=== PATIENT | male | born 1950 | race Caucasian/White ===

== ENCOUNTER 2018-10-27 16:18 | Emergency (ER) | payer OTHER, MEDICAID ==
[~2018-10-27] VITALS: Ht 170.2 cm; Wt 85.4 kg
[2018-10-27 16:25] VITALS: Ht 170.2 cm; Wt 85.4 kg
[2018-10-27 17:04] LABS: BASOPHIL % 0.1 % (0-2); PLATELET COUNT 224 x10^3mcL (130-400)
[2018-10-27 17:05] LABS: RED CELL DISTRIBUTION WIDTH 15.3 % (11.5-14.5)
[2018-10-27 17:16] LABS: CALCIUM 9.1 mg/dL (8.5-10.1); CARBON DIOXIDE 28.2 mmol/L (21-32); CREATININE SERUM 1.7 mg/dL (0.7-1.3); POTASSIUM SERUM 3.9 mmol/L (3.5-5.1)
[2018-10-27 17:21] LABS: BILIRUBIN TOTAL 0.42 mg/dL (0.20-1.00); TOTAL PROTEIN, SERUM 7.7 g/dL (6.4-8.2)
[2018-10-27 17:28] LABS: ALBUMIN 3.3 g/dL (3.4-5.0)
[2018-10-27 18:48] VITALS: BP 119/80
== END 2018-10-27 18:48 | disposition home or self-care (01) ==
LOC: ED 16:18
PROVIDERS: Emergency Medicine
DX: S82.831A Other fracture of upper and lower end of right fibula, initial encounter for closed fracture (principal); I10 Essential (primary) hypertension; E11.9 Type 2 diabetes mellitus without complications; W18.30XA Fall on same level, unspecified, initial encounter; Y93.89 Activity, other specified; Y92.89 Other specified places as the place of occurrence of the external cause; Y99.8 Other external cause status
CPT/HCPCS: Q0092

== ENCOUNTER 2019-09-15 20:06 | Inpatient (IN) | payer OTHER, MEDICAID ==
[~2019-09-15] VITALS: Ht 170.2 cm; Wt 73.9 kg
[2019-09-15 20:10] VITALS: Ht 170.2 cm; Wt 73.9 kg
[2019-09-15 20:37] LABS: RED CELL DISTRIBUTION WIDTH 14.5 % (11.5-14.5)
[2019-09-15 20:43] LABS: PLATELET COUNT 115 x10^3mcL (130-400)
[2019-09-15 20:44] LABS: CALCIUM 8.7 mg/dL (8.5-10.1); CARBON DIOXIDE 30.4 mmol/L (21-32); CREATININE SERUM 1.5 mg/dL (0.7-1.3); POTASSIUM SERUM 3.5 mmol/L (3.5-5.1)
--- NOTE | 2019-09-15 20:45 | NUR ---
PT MOVED TO RM 14 FOR NEUTROPENIC PRECAUTIONS.
[2019-09-15 20:49] LABS: BILIRUBIN TOTAL 0.33 mg/dL (0.20-1.00); TOTAL PROTEIN, SERUM 7.6 g/dL (6.4-8.2)
[2019-09-15 20:56] LABS: BAND NEUTROPHIL 0 % (0-10); BASOPHIL 0 % (0-2); MONOCYTE 8 % (0-7); SEGMENTED NEUTROPHILS 18 % (37-75)
[2019-09-15 20:58] LABS: rbc morphology (normal/abnorm) NORMAL (NORMAL)
[2019-09-15 21:00] LABS: ALBUMIN 2.9 g/dL (3.4-5.0)
--- NOTE | 2019-09-15 21:02 | NUR ---
PT PRESENTED TO ED FOR NAUSEA, VOMITING, AND BURNING EPIGASTRIC PAIN THAT RADIATES TO MIDSTERNAL X 6 DAYS S/P GETTING CHEMO. PT GRANDDAUGHTER RENAY STATES HE RECEIVED HIS FIRST IV CHEMO ON WEDNESDAY, WEDNESDAY, WEDNESDAY, AND WEDNESDAY. PT REPORTS "NOT FEELING WELL" AFTER CHEMO AND "THEY GAVE ME PILLS FOR THE NAUSEA BUT I RAN OUT, SO I HAVENT BEEN TAKING THEM". PT AWAKE AND ALERT, SPEAKING FULL CLEAR SENTENCES. PT BREATHING EVEN AND UNLABORED. PT GRANDAUGHER AT BEDSIDE. WILL CONTINUE TO MONITOR, AWAITING MSE. FULL CM AND [address]
--- NOTE | 2019-09-15 21:06 | NUR ---
RENAY HERNÁNDEZ GRANDDAUGHTER [phone] TO CONTACT ABOUT PLAN 0F CARE. OKAY PER PT TO CONTACT RENAY.
[2019-09-15 22:09] LABS: microscopic required? YES; urine erythrocyte NEGATIVE (NEGATIVE)
[2019-09-15] MEDS ORDERED: LIPITOR10 MG (22:21)
[2019-09-15] MEDS ORDERED: LYSODREN500 MG PO (22:21)
[2019-09-15] MEDS ORDERED: ZOFRAN8 MG PO (22:21)
[2019-09-15] MEDS ORDERED: IBU400 M2 PO (22:22)
--- NOTE | 2019-09-15 22:23 | NUR ---
XRAY AT BEDSIDE
[2019-09-15 22:27] LABS: CHOLESTEROL/HDL RATIO 3.3; MAGNESIUM 1.6 mg/dL (1.8-2.4); PHOSPHOROUS 2.8 mg/dL (2.5-4.9)
--- NOTE | 2019-09-15 22:45 | NUR ---
REPORT CALLED TO ARMANI SEPULVEDA.
--- NOTE | 2019-09-15 22:48 | NUR ---
PT TRANSFERED TO [facility] AT THIS TIME VIA GURNEY BY JEANNE EMT. PT A&0X4, SPEAKING FULL CLEAR SENTENCES. PT BREATHING EVEN AND UNLABORED. PT VERBALIZED UNDERSTANDING OF PLAN OF CARE. IV FLUIDS RUNNING AT ORDERED RATE WITH NO COMPLICATIONS. ARMANI RN TO ASSUME CARE OF PT AT THIS TIME.
[2019-09-15 23:18] VITALS: BP 160/88
[2019-09-15 23:30] LABS: IRON 171 ug/dL (65-170); TOTAL IRON BINDING CAPACITY 211 ug/dL (250-450)
--- NOTE | 2019-09-15 23:36 | NUR ---
RECEIVED PT FROM ER, PT ADMIT FOR LEUKOPENIA, UNSEPCIFIED CA, PT IS A/O X4, VERBAL RESPONSIVE. LUNG SOUND CLEAR BILATERAL, NO COUGH, NO SOB. PT DENY ANY CHEST PAIN OR DISCOMFORT, BOWEL SOUND PRESENT ALL 4 QUADRANTS, NO DISTENTION, NO TENDER. BUT PT C/O VOMITTING FOR 7 DAYS. SINCE LAST WEEKEND HIS LAST DOSE TO CHEMO TREATMENT IN [facility]. DENY ANY N/V AT THIS MOMENT, PEDAL PULSE PRESENT BOTH FEET, TRACE EDEMA BLE. THERE IS MEDI PORT AT RIGHT UPPER CHEST. PT IS ON NEUTROPENIA ISOLATION AT THIS MOMENT, ALL ADLS ASSIST, ALL NEED MET, CALL LIGHT IN REACH, WILL CONTINUE TO MONITOR.
--- NOTE | 2019-09-15 23:40 | NUR ---
PT RECIEVED FROM LEWIS SEPULVEDA. PT RESTING IN BED AT THIS TIME. REQUESTING A BENEDRYL FOR ITCHING, INFORMED . SHE STATED SHE WOULD ORDER. BREATHING E/U ON RA AT THIS TIME. NO S/S OF ACUTE STRESS NOTED. ALL NEEDS AND CONCERNS ADDRESSED AT THIS TIME. WILL CONTINUE TO MONITOR.
--- NOTE | 2019-09-15 23:42 | NUR ---
PT REFUSING NG TUBE INSERTION AT THIS TIME. MADE AWARE.
[2019-09-16 03:18] LABS: RED BLOOD CELLS 4.85 M/mm3 (4.52-5.90)
[2019-09-16 05:13] VITALS: BP 168/90
--- NOTE | 2019-09-16 06:31 | NUR ---
PT RESTING IN BED AT THIS TIME. COMPLAINING OF N/V AT THSI TIME. MEDICATED WITH PRN ZOFRAN. BREATHING E/U ON RA. NO S/S OF ACUTE DISTRESS NOTED AT THIS TIME. ALL NEEDS AND CONCERNS ADDRESSED THIS SHIFT. BED AT LOWEST POSITION. CALL LIGHT WITHIN REACH. WILL ENDORSE TO DAY NURSE.
[2019-09-16 07:32] LABS: CALCIUM 8.3 mg/dL (8.5-10.1); CARBON DIOXIDE 25.4 mmol/L (21-32); CHLORIDE SERUM 95 mmol/L (98-107); CREATININE SERUM 1.2 mg/dL (0.7-1.3); GFR1 > 60 mL/min; GLUCOSE SERUM 257 mg/dL (74-106); MAGNESIUM 1.9 mg/dL (1.8-2.4); PHOSPHOROUS 2.4 mg/dL (2.5-4.9); POTASSIUM SERUM 3.5 mmol/L (3.5-5.1); SODIUM SERUM 131 mmol/L (136-145)
--- NOTE | 2019-09-16 07:35 | NUR ---
RECEIVED PT FROM [employer]. ASSESSED AND DOCUMENTED. DENIES ANY PAIN THIS TIME. NO DISTRESS NOTED. STABLE. SAFTEY PRECAUTIONS ARE IN PLACE. WILL MONITOR.
[2019-09-16 07:43] LABS: RED CELL DISTRIBUTION WIDTH 14.2 % (11.5-14.5)
[2019-09-16 07:51] LABS: PLATELET COUNT 81 x10^3mcL (130-400)
[2019-09-16 07:57] LABS: AMPHETAMINE QUAL UR NEGATIVE (See below)
--- NOTE | 2019-09-16 08:00 | NUR ---
AWARE ABOUT WBC=1.8, PHOS 2.4 AND ALL WBC AND BMP RESULT. PT IS STABLE.
[2019-09-16 08:13] VITALS: BP 165/92
--- NOTE | 2019-09-16 08:40 | NUR ---
PT'S GRAND DAUGHTER CAME TO VISIT PT. PT CALLED AND SAID HE WANT TO GO HOME BECAUSE HIS IS SICK. INFORMED , SHE AND CAME IN THE ROOM AND SPOKE WITH PT. AWARE ABOUT PT BP 165/92 AND HR 114. PT IS ANXIOUS TO GO HOME AND HE SAID HE HAS BP MEDICINE AT HOME AND HE WILL TAKE IT AT HOME, HE HAS TO GO HOME NOW. PT SIGNED AMA FORM AND PB FORM. PT IS STABLE. DENIES ANY PAIN. PROVIDED PRESCRIPTION FOR ZOFRAN TO HIS PHARMACY.
[2019-09-16 08:43] LABS: SEGMENTED NEUTROPHILS 22 % (37-75)
[2019-09-16 08:44] LABS: MONOCYTE 4 % (0-7); rbc morphology (normal/abnorm) ABNORMAL (NORMAL)
--- NOTE | 2019-09-16 08:55 | NUR ---
RIVER[employer]AT MASTER OFFERED WHEELCHAIR BUT PT REFUSED AND SAID HE WANT TO WALK. RIVERBOAT MASTER WALK WITH PT ACCOMPANIED WITH HIS GRAND DAUGHTER TO LOBBY. PT IS STABLE, DENIES ANY PAIN. NO NAUSEA/VOMITING THIS TIME. LEFT AMA.
[2019-09-16 11:31] LABS: BAND NEUTROPHIL 0 % (0-10)
== END 2019-09-16 08:58 | disposition left against medical advice (07) | DRG 682 ==
LOC: ED 20:06 → MU 22:01
PROVIDERS: Emergency Medicine; ADMIT Family Medicine
DX: N17.0 Acute kidney failure with tubular necrosis (principal); R65.11 Systemic inflammatory response syndrome (SIRS) of non-infectious origin with acute organ dysfunction; C48.1 Malignant neoplasm of specified parts of peritoneum; D68.69 Other thrombophilia; E44.0 Moderate protein-calorie malnutrition; E87.1 Hypo-osmolality and hyponatremia; E86.0 Dehydration; R11.2 Nausea with vomiting, unspecified; T45.1X5A Adverse effect of antineoplastic and immunosuppressive drugs, initial encounter; I12.9 Hypertensive chronic kidney disease with stage 1 through stage 4 chronic kidney disease, or unspecified chronic kidney disease; N18.4 Chronic kidney disease, stage 4 (severe); D69.59 Other secondary thrombocytopenia; E83.42 Hypomagnesemia; E83.51 Hypocalcemia; E11.9 Type 2 diabetes mellitus without complications; Z68.25 Body mass index [BMI] 25.0-25.9, adult; Y92.009 Unspecified place in unspecified non-institutional (private) residence as the place of occurrence of the external cause
CPT/HCPCS: 82962; 83880; 87804; G0378; J2405; J2543; J2765; J3475; J7030; Q0092; Q0163

== ENCOUNTER 2019-10-16 20:19 | Inpatient (IN) | payer OTHER, MEDICAID ==
[~2019-10-16] VITALS: Ht 170.2 cm; Wt 69.4 kg
[~2019-10-16 20:19] MED LIST: IBU400 M2 PO; LIPITOR10 MG; LYSODREN500 MG PO; ZOFRAN8 MG PO
[2019-10-16 20:47] VITALS: Ht 170.2 cm; Wt 69.4 kg
[2019-10-16 21:27] LABS: PLATELET COUNT 59 x10^3mcL (130-400); RED CELL DISTRIBUTION WIDTH 14.9 % (11.5-14.5)
[2019-10-16 21:49] LABS: CALCIUM 8.9 mg/dL (8.5-10.1); CARBON DIOXIDE 38.8 mmol/L (21-32); CREATININE SERUM 2.7 mg/dL (0.7-1.3); POTASSIUM SERUM 3.2 mmol/L (3.5-5.1)
[2019-10-16 21:51] LABS: BAND NEUTROPHIL 0 % (0-10); BASOPHIL 0 % (0-2); SEGMENTED NEUTROPHILS 30 % (37-75)
[2019-10-16 21:53] LABS: BILIRUBIN TOTAL 0.18 mg/dL (0.20-1.00); PLATELET MORPHOLOGY PLATELETS DECREASED; rbc morphology (normal/abnorm) ABNORMAL (NORMAL)
[2019-10-16 21:55] LABS: ALBUMIN 2.7 g/dL (3.4-5.0)
[2019-10-16] MEDS ORDERED: HORIZANT300 MG PO (23:10)
[2019-10-16] MEDS ORDERED: COLACE100 MG PO (23:11)
[2019-10-16] MEDS ORDERED: FERROCITE324 MG PO (23:11)
[2019-10-17 00:35] VITALS: BP 135/68
[2019-10-17 02:43] LABS: T3 TOTAL 1.1 ng/mL
[2019-10-17 02:44] LABS: CHOLESTEROL/HDL RATIO 3.8
[2019-10-17 02:57] LABS: FREE T4 1.12 ng/dL (0.76-1.46); FREE THYROXINE INDEX 2.7 ug/dL (1.4-4.5); T4(THYROXINE) 8.9 ug/dL (4.7-13.3)
[2019-10-17 05:48] VITALS: BP 166/73
[2019-10-17 07:03] LABS: CARBON DIOXIDE 33.3 mmol/L (21-32); CREATININE SERUM 2.3 mg/dL (0.7-1.3)
[2019-10-17 07:09] LABS: POTASSIUM SERUM 2.9 mmol/L (3.5-5.1)
[2019-10-17 07:54] LABS: PLATELET COUNT 54 x10^3mcL (130-400)
[2019-10-17 09:30] LABS: BAND NEUTROPHIL 0 % (0-10); SEGMENTED NEUTROPHILS 71 % (37-75)
[2019-10-17 09:31] LABS: MONOCYTE 3 % (0-7); PLATELET MORPHOLOGY PLATELETS DECREASED; rbc morphology (normal/abnorm) NORMAL (NORMAL)
[2019-10-17 09:33] VITALS: BP 172/99
[2019-10-17 12:32] VITALS: BP 179/92
[2019-10-17 17:10] VITALS: BP 122/75
[2019-10-17 20:41] VITALS: BP 152/82
[2019-10-17 20:53] LABS: microscopic required? YES; urine erythrocyte NEGATIVE (NEGATIVE)
[2019-10-17 21:26] LABS: AMPHETAMINE QUAL UR NONE DETECTED (See below)
[2019-10-18 06:00] VITALS: BP 148/82
[2019-10-18 06:59] LABS: CALCIUM 7.3 mg/dL (8.5-10.1); CREATININE SERUM 1.8 mg/dL (0.7-1.3); PHOSPHOROUS 2.3 mg/dL (2.5-4.9); POTASSIUM SERUM 3.3 mmol/L (3.5-5.1)
[2019-10-18 07:02] LABS: MAGNESIUM 0.9 mg/dL (1.8-2.4)
[2019-10-18 07:35] LABS: RED CELL DISTRIBUTION WIDTH 15.7 % (11.5-14.5)
[2019-10-18 07:58] VITALS: BP 115/41
[2019-10-18 09:02] LABS: SEGMENTED NEUTROPHILS 20 % (37-75)
[2019-10-18 09:03] LABS: ATYPICAL LYMPH 0 %; BAND NEUTROPHIL 0 % (0-10); BASOPHIL 0 % (0-2); MONOCYTE 3 % (0-7); rbc morphology (normal/abnorm) ABNORMAL (NORMAL)
[2019-10-18 09:04] LABS: PLATELET MORPHOLOGY PLATELETS DECREASED
[2019-10-18 09:07] LABS: PLATELET COUNT 25 x10^3mcL (130-400)
[2019-10-18 12:30] VITALS: BP 158/84
[2019-10-18 16:26] VITALS: BP 162/85
[2019-10-18 20:55] VITALS: BP 157/71
[2019-10-19] VITALS (9 sets, daily range): BP systolic 98–171; BP diastolic 57–89
[2019-10-19 07:23] LABS: CALCIUM 7.5 mg/dL (8.5-10.1); CARBON DIOXIDE 28.4 mmol/L (21-32); CREATININE SERUM 1.6 mg/dL (0.7-1.3); MAGNESIUM 1.6 mg/dL (1.8-2.4); POTASSIUM SERUM 3.8 mmol/L (3.5-5.1)
[2019-10-19 07:40] LABS: PLATELET COUNT 13 x10^3mcL (130-400); RED CELL DISTRIBUTION WIDTH 15.3 % (11.5-14.5)
[2019-10-19 09:40] LABS: BAND NEUTROPHIL 4 % (0-10); BASOPHIL 0 % (0-2); MONOCYTE 8 % (0-7); SEGMENTED NEUTROPHILS 40 % (37-75); rbc morphology (normal/abnorm) ABNORMAL (NORMAL)
[2019-10-19 12:27] LABS: RED CELL DISTRIBUTION WIDTH 15.7 % (11.5-14.5)
[2019-10-19 13:25] LABS: BAND NEUTROPHIL 3 % (0-10); BASOPHIL 0 % (0-2); MONOCYTE 5 % (0-7); PLATELET MORPHOLOGY PLATELETS DECREASED; SEGMENTED NEUTROPHILS 53 % (37-75); ovalocyte/elliptocyte 1+; rbc morphology (normal/abnorm) ABNORMAL (NORMAL); target cell (codocyte) 1+; tear drop cell (dacryocyte) 1+
[2019-10-19 13:30] LABS: PLATELET COUNT 21 x10^3mcL (130-400)
[2019-10-20] VITALS (8 sets, daily range): BP systolic 140–166; BP diastolic 67–85
[2019-10-20 06:21] LABS: CALCIUM 8.2 mg/dL (8.5-10.1); CARBON DIOXIDE 26.8 mmol/L (21-32); CREATININE SERUM 1.5 mg/dL (0.7-1.3); MAGNESIUM 1.8 mg/dL (1.8-2.4); PHOSPHOROUS 2.9 mg/dL (2.5-4.9); POTASSIUM SERUM 3.8 mmol/L (3.5-5.1)
[2019-10-20 08:05] LABS: RED CELL DISTRIBUTION WIDTH 15.5 % (11.5-14.5)
[2019-10-20 11:22] LABS: PLATELET COUNT 39 x10^3mcL (130-400); RED CELL DISTRIBUTION WIDTH 15.7 % (11.5-14.5)
[2019-10-20 13:14] LABS: MONOCYTE 8 % (0-7); SEGMENTED NEUTROPHILS 53 % (37-75); rbc morphology (normal/abnorm) ABNORMAL (NORMAL)
[2019-10-20 13:15] LABS: PLATELET MORPHOLOGY PLATELETS DECREASED; burr cell (echinocyte) 1+; ovalocyte/elliptocyte 1+
[2019-10-20 13:16] LABS: PLATELET COUNT 30 x10^3mcL (130-400)
[2019-10-20 13:23] LABS: MONOCYTE 9 % (0-7); SEGMENTED NEUTROPHILS 55 % (37-75); rbc morphology (normal/abnorm) ABNORMAL (NORMAL)
[2019-10-20 13:24] LABS: PLATELET MORPHOLOGY PLATELETS DECREASED; burr cell (echinocyte) 1+; ovalocyte/elliptocyte 1+
== END 2019-10-20 15:16 | disposition home or self-care (01) | DRG 808 ==
LOC: ED 20:19 → DU 22:40
PROVIDERS: Emergency Medicine; Family Medicine; Internal Medicine Cardiovascular Disease; ADMIT Internal Medicine
PROC: 30233R1 Transfusion of Nonautologous Platelets into Peripheral Vein, Percutaneous Approach (ICD-10-PCS; principal; 2019-10-19)
DX: D61.810 Antineoplastic chemotherapy induced pancytopenia (principal); N17.0 Acute kidney failure with tubular necrosis; G93.41 Metabolic encephalopathy; C74.00 Malignant neoplasm of cortex of unspecified adrenal gland; E44.0 Moderate protein-calorie malnutrition; N18.4 Chronic kidney disease, stage 4 (severe); E86.0 Dehydration; S09.90XA Unspecified injury of head, initial encounter; E87.8 Other disorders of electrolyte and fluid balance, not elsewhere classified; T45.1X5A Adverse effect of antineoplastic and immunosuppressive drugs, initial encounter; K21.9 Gastro-esophageal reflux disease without esophagitis; W01.0XXA Fall on same level from slipping, tripping and stumbling without subsequent striking against object, initial encounter; Z90.49 Acquired absence of other specified parts of digestive tract; Z87.891 Personal history of nicotine dependence; Z68.24 Body mass index [BMI] 24.0-24.9, adult; Y93.89 Activity, other specified; Y92.89 Other specified places as the place of occurrence of the external cause; Y99.8 Other external cause status; I12.9 Hypertensive chronic kidney disease with stage 1 through stage 4 chronic kidney disease, or unspecified chronic kidney disease; E11.22 Type 2 diabetes mellitus with diabetic chronic kidney disease
CPT/HCPCS: 82962; 84439; 97116-GP; 97530-GP; C9113; G0378; J1442; J1815; J2270; J2405; J2765; J3475; J3480; J3490; J7030; J7042; J7050; P9035; Q0163

== ENCOUNTER 2020-01-21 04:38 | Emergency (ER) | payer OTHER, MEDICAID ==
[~2020-01-21] VITALS: Ht 177.8 cm; Wt 86.2 kg
[~2020-01-21 04:38] MED LIST changes: +COLACE100 MG PO; +FERROCITE324 MG PO; +HORIZANT300 MG PO
[2020-01-21 04:46] VITALS: Ht 177.8 cm; Wt 86.2 kg
[2020-01-21 05:41] LABS: BASOPHIL % 0.1 % (0-2); PLATELET COUNT 258 x10^3mcL (130-400); RED CELL DISTRIBUTION WIDTH 14.5 % (11.5-14.5)
[2020-01-21 05:47] LABS: CARBON DIOXIDE 34.7 mmol/L (21-32); CREATININE SERUM 1.3 mg/dL (0.7-1.3); POTASSIUM SERUM 3.4 mmol/L (3.5-5.1)
[2020-01-21 05:52] LABS: BILIRUBIN TOTAL 0.1 mg/dL (0.20-1.00); TOTAL PROTEIN, SERUM 7.3 g/dL (6.4-8.2)
[2020-01-21 05:55] LABS: ALBUMIN 3.1 g/dL (3.4-5.0)
[2020-01-21 09:16] LABS: microscopic required? YES; urine erythrocyte TRACE (NEGATIVE)
[2020-01-21 09:30] VITALS: BP 165/75
[2020-01-21 09:35] LABS: AMPHETAMINE QUAL UR NONE DETECTED (See below)
== END 2020-01-21 09:30 | disposition home or self-care (01) ==
LOC: ED 04:38
PROVIDERS: Emergency Medicine
DX: E11.649 Type 2 diabetes mellitus with hypoglycemia without coma (principal); G93.41 Metabolic encephalopathy; E11.22 Type 2 diabetes mellitus with diabetic chronic kidney disease; I12.9 Hypertensive chronic kidney disease with stage 1 through stage 4 chronic kidney disease, or unspecified chronic kidney disease; N18.9 Chronic kidney disease, unspecified; F11.20 Opioid dependence, uncomplicated; F17.210 Nicotine dependence, cigarettes, uncomplicated; D64.9 Anemia, unspecified
CPT/HCPCS: 82962; 99406; Q0092

== ENCOUNTER 2020-01-25 11:43 | Emergency (ER) | payer OTHER, MEDICAID ==
[~2020-01-25] VITALS: Ht 154.9 cm; Wt 68.0 kg
[2020-01-25 11:52] VITALS: Ht 154.9 cm; Wt 68.0 kg
[2020-01-25 12:12] LABS: BASOPHIL % 0.1 % (0-2); PLATELET COUNT 267 x10^3mcL (130-400)
[2020-01-25 12:45] LABS: RED CELL DISTRIBUTION WIDTH 14.7 % (11.5-14.5)
[2020-01-25 12:51] LABS: ALBUMIN 3.4 g/dL (3.4-5.0); ALKALINE PHOSPHATASE 99 U/L (46-116); ALT/SGPT 24 U/L (16-63); AST/SGOT 44 U/L (15-37); BILIRUBIN TOTAL 0.2 mg/dL (0.20-1.00); CALCIUM 9.6 mg/dL (8.5-10.1); CARBON DIOXIDE 30.9 mmol/L (21-32); CHLORIDE SERUM 93 mmol/L (98-107); GFR1 36 mL/min; GLUCOSE SERUM 94 mg/dL (74-106)
[2020-01-25 12:52] LABS: TOTAL PROTEIN, SERUM 8.4 g/dL (6.4-8.2)
[2020-01-25 12:56] LABS: SODIUM SERUM 134 mmol/L (136-145)
[2020-01-25 12:57] LABS: POTASSIUM SERUM 2.9 mmol/L (3.5-5.1)
[2020-01-25 14:54] LABS: AMPHETAMINE QUAL UR NONE DETECTED (See below)
[2020-01-25 16:41] VITALS: BP 184/98
== END 2020-01-25 16:41 | disposition home or self-care (01) ==
LOC: ED 11:43
PROVIDERS: Emergency Medicine
DX: E11.649 Type 2 diabetes mellitus with hypoglycemia without coma (principal); I10 Essential (primary) hypertension
CPT/HCPCS: 82962; G0480; J3490; J7030; Q0092

== ENCOUNTER 2020-02-07 16:38 | Emergency (ER) | payer OTHER, MEDICAID ==
[~2020-02-07] VITALS: Ht 167.6 cm; Wt 70.3 kg
[2020-02-07 16:59] VITALS: Ht 167.6 cm; Wt 70.3 kg
[2020-02-07 17:25] LABS: CARBON DIOXIDE 31.2 mmol/L (21-32); POTASSIUM SERUM 3.2 mmol/L (3.5-5.1)
[2020-02-07 17:30] LABS: BILIRUBIN TOTAL 0.2 mg/dL (0.20-1.00); TOTAL PROTEIN, SERUM 7.9 g/dL (6.4-8.2)
[2020-02-07 17:31] LABS: ALBUMIN 2.8 g/dL (3.4-5.0)
[2020-02-07 22:10] VITALS: BP 121/62
== END 2020-02-07 22:10 | disposition home or self-care (01) ==
LOC: ED 16:38
PROVIDERS: Specialist
DX: E11.649 Type 2 diabetes mellitus with hypoglycemia without coma (principal); I10 Essential (primary) hypertension
CPT/HCPCS: 82962